=== PATIENT | male | born 1935 | race Caucasian/White ===

== ENCOUNTER 2018-05-02 09:34 | Day surgery (SDC) | payer MEDICARE ==
[~2018-05-02 09:34] MED LIST: Acetaminophen TAB* 325 MG PO PRN; Buffered Lidocaine 1% SYRIN* 1 ML/SYRINGE INTRADERM ONE
[2018-05-02] MEDS ORDERED: Midazolam* 1 MG/ML 5 ML VIAL (5 MG) ONE (11:24)
[2018-05-02] MEDS ORDERED: Tropicamide 1% OPTH.SOL* BTL ONE (12:04)
[2018-05-02] MEDS ORDERED: Ketorolac 0.5% OPHTH (NF) 0.5 % 5 ML BTL ONE (12:04)
[2018-05-02] MEDS ORDERED: Lidocaine 1%* 5 ML VIAL ONE (12:04)
[2018-05-02] MEDS ORDERED: Cyclopentolate 1% OPTH.SOL* 2 ML BTL ONE (12:04)
[2018-05-02] MEDS ORDERED: Phenylephrine 2.5% OPTH.SOL* 2 ML BTL ONE (12:04)
[2018-05-02] MEDS ORDERED: Neomycin/Polymy/Dex OPHTH.OIN* 3.5 GM ONE (12:04)
[2018-05-02] MEDS ORDERED: Tetracaine 0.5% OPTH.SOL 4 ML* 1 DROP BTL ONE (12:04)
[2018-05-02 12:47] VITALS: BP 137/67
--- NOTE | 2018-05-02 16:56 | OP ---
DATE OF OPERATION: 05/02/18 [facility] DATE OF : 35 SURGEON: Dr. Benjamin Wilson. DIRECTOR OF EXHIBIT DEVELOPMENT: None. ANESTHESIA: Topical with intravenous sedation. PRE-OP DIAGNOSIS: Cataract, left eye. POST-OP DIAGNOSIS: Cataract, left eye. OPERATIVE PROCEDURE: Phacoemulsification and cataract extraction with posterior chamber intraocular lens implant, left eye. COMPLICATIONS: None. BLOOD LOSS: None. DESCRIPTION OF PROCEDURE: The patient was brought to the operating room and received a small amount of intravenous sedation. A drop of tetracaine was placed in his left eye. He was prepped and draped in the usual sterile fashion for ophthalmic surgery and attention was directed to the left eye where a speculum was placed. A paracentesis was created at the 5 o'clock position and 0.1 cc of 1 percent preservative-free Lidocaine was injected into the anterior chamber followed by DisCoVisc. The eye was digitally stabilized while a 2.75 mm keratome was used to create a triplanar clear corneal incision at the 3 o' clock position. A continuous curvilinear capsulorrhexis was created with a cystotome and Utrata forceps. BSS on a cannula was used to hydrodissect the lens from the capsule. Phacoemulsification was performed in a divide-and- conquer technique to create four fragments which were removed. Residual cortical material was removed with irrigation and aspiration. DisCoVisc was used to inflate the capsular bag and an AU00T0 21.0 diopter lens was folded and inserted into the capsular bag. DisCoVisc was removed using irrigation and aspiration. BSS on a cannula was used to hydrate the corneal stroma and seal the wound. At the end of the case, the pupil was round and the lens was centered. The eye was of normal pressure and the wound was water tight. The speculum was removed and topical Maxitrol ointment was placed on the surface of the eye. The eye was closed, patched and shielded and the patient was sent to the recovery room in stable condition with post operative instructions and follow-up appointment given. [id number]/CPS #: [id number] MARCO A
== END 2018-05-02 12:55 | disposition home or self-care (01) ==
LOC: OREAST 09:34
PROVIDERS: ATTEND Ophthalmology
DX: H25.12 Age-related nuclear cataract, left eye (principal); I10 Essential (primary) hypertension; I49.5 Sick sinus syndrome; Z85.46 Personal history of malignant neoplasm of prostate
CPT/HCPCS: A9270-GY; J2250; V2632

== ENCOUNTER 2018-05-09 10:58 | Day surgery (SDC) | payer MEDICARE ==
[2018-05-09] MEDS ORDERED: fentaNYL* 50 MCG/ML 2 ML VIAL (100 MCG VIAL) ONE (13:16)
[2018-05-09] MEDS ORDERED: Midazolam* 1 MG/ML 2 ML VIAL (2 MG) ONE (13:16)
[2018-05-09 14:09] VITALS: BP 148/59
[2018-05-09] MEDS ORDERED: Phenylephrine OPHTH SOL 2.5%* 2 ML ONE (14:52)
[2018-05-09] MEDS ORDERED: Neomycin/Polymy/Dex OPHTH.OIN* 3.5 GM ONE (14:52)
[2018-05-09] MEDS ORDERED: Cyclopentolate 1% OPTH.SOL* 2 ML BTL ONE (14:52)
[2018-05-09] MEDS ORDERED: Lidocaine 1%* 5 ML VIAL ONE (14:52)
[2018-05-09] MEDS ORDERED: Tropicamide 1% OPTH.SOL* BTL ONE (14:52)
[2018-05-09] MEDS ORDERED: Ketorolac 0.5% OPHTH (NF) 0.5 % 5 ML BTL ONE (14:53)
[2018-05-09] MEDS ORDERED: Tetracaine 0.5% OPTH.SOL 4 ML* 1 DROP BTL ONE (14:53)
--- NOTE | 2018-05-09 14:54 | OP ---
DATE OF OPERATION/DATE OF DICTATION: 05/09/2018 - [facility] DATE OF : 1935. SURGEON: Dr. Benjamin Wilson. WELD INSPECTOR: None. ANESTHESIA: Topical with intravenous sedation. PRE-OP DIAGNOSIS: Cataract, right eye. POST-OP DIAGNOSIS: Cataract, right eye. OPERATIVE PROCEDURE: Phacoemulsification and cataract extraction with posterior chamber intraocular lens implant, right eye. COMPLICATIONS: None. BLOOD LOSS: None. OPERATIVE FINDINGS: The patient was brought to the operating room and received a small amount of intravenous sedation. A drop of Tetracaine was placed in his right eye. He was prepped and draped in the usual sterile fashion for ophthalmic surgery and attention was directed to the right eye where a speculum was placed. A paracentesis was created at the 11 o'clock position and 0.1 cc of 1 percent preservative-free Lidocaine was injected into the anterior chamber followed by DisCoVisc. The eye was digitally stabilized while a 2.75 mm keratome was used to create a triplanar clear corneal incision at the 9 o'clock position. A continuous curvilinear capsulorrhexis was created with a cystotome and Utrata forceps. BSS on a cannula was used to hydrodissect the lens from the capsule. Phacoemulsification was performed in a pahzbv-spa-mefeowu technique to create four fragments which were removed. Residual cortical material was removed with irrigation and aspiration. DisCoVisc was used to inflate the capsular bag and an AUOOTO 21.0 diopter lens was folded and inserted into the capsular bag. DisCoVisc was removed using irrigation and aspiration. BSS on a cannula was used to hydrate the corneal stroma and seal the wound. At the end of the case the pupil was round and the lens was centered. The eye was of normal pressure and the wound was water tight. The speculum was removed and topical Maxitrol ointment was placed on the surface of the eye. The eye was closed, patched and shielded and the patient was sent to the recovery room in stable condition with post operative instructions and follow-up appointment given. [id number]/CPS #: [id number] MTDD
== END 2018-05-09 14:09 | disposition home or self-care (01) ==
LOC: OREAST 10:58
PROVIDERS: ATTEND Ophthalmology
DX: H25.11 Age-related nuclear cataract, right eye (principal); I10 Essential (primary) hypertension; Z85.46 Personal history of malignant neoplasm of prostate; I49.5 Sick sinus syndrome
CPT/HCPCS: A9270-GY; J2250; J3010; V2632

== ENCOUNTER → 2018-09-19 12:36 | Day surgery (SDC) | payer MEDICARE ==
[~2018-09-19 12:36] MED LIST changes: +Bupivacaine 0.25% SDV PF* 10 ML VIAL INJ ONE; +Dexamethasone IV* 4 MG/ML 1 ML (4 MG) IV SLOW PU ONE; +Dexamethasone IV* 4 MG/ML 1 ML (4 MG) ONE; +Famotidine TAB* 20 MG ONE; +Famotidine TAB* 20 MG PO ONE; +Ibuprofen TAB* 600 MG PO PRN; +Lactated Ringers 1000 ML Bag* 1,000 ML IV SCH; +Lidocaine 1% w EPI 1:100,000* MDV 20 ML VIAL ONE; +Methylene Blue 0.5 %* 50 MG/10 ML AMP IV ONE; +Midazolam* 1 MG/ML 2 ML VIAL (2 MG) ONE; +Naloxone* 0.4 MG/ML 1 ML VIAL IV PRN; +Ondansetron INJ* 2 MG/ML VIAL IV PRN; +Propofol* 10 MG/ML 20 ML BTL ONE; +ceFAZolin 2 GM in NS PREMIX(*) 2 GM/100 ML BAG IVPB ONE; +fentaNYL* 50 MCG/ML 2 ML VIAL (100 MCG VIAL) IV PRN; +fentaNYL* 50 MCG/ML 2 ML VIAL (100 MCG VIAL) ONE; +oxyCODONE/Acetamin 5/325 MG* TAB PO PRN
[2018-09-19 18:15] VITALS: BP 127/56
== END | disposition home or self-care (01) ==
LOC: OR 12:36
PROVIDERS: ATTEND Plastic Surgery
DX: C43.61 Malignant melanoma of right upper limb, including shoulder (principal); I10 Essential (primary) hypertension; M19.90 Unspecified osteoarthritis, unspecified site; I49.5 Sick sinus syndrome
CPT/HCPCS: 88305; A9270-GY; J0690; J1100; J2250; J2704; J3010; J3490

== ENCOUNTER 2023-01-16 23:48 | Inpatient (IN) ==
[2023-01-17 00:44] LABS: ABS Lymphocytes 0.9 10^3/uL (1.0-4.8); ABS Monocytes 0.5 10^3/uL (0.0-1.1); ABS Neutrophils 4.1 10^3/uL (1.5-7.6); ABS Nucleated RBC 0.01 10^3/ul; Eosinophil % 0.5 %; Hematocrit 39.7 % (38-53); Hemoglobin 13.5 g/dL (13.2-16.3); Lymphocyte % 16.2 %; Mean Corpuscular Hemoglobin 30.8 pg (27-33); Mean Corpuscular Volume 90.6 fL (80-97); Mean Platelet Volume 8.5 fL (7.5-11.2); Nucleated Red Blood Cells % 0.2 %/100WBC (0.0-0.8); Platelet Count 136 10^3/uL (150-450); Red Blood Count 4.38 10^6/uL (4.06-5.63); Red Cell Distribution Width 14.7 % (12-17); White Blood Count 5.6 10^3/uL (3.6-10.2)
[2023-01-17 00:50] LABS: Urine Appearance Turbid; Urine Bilirubin Negative (Negative); Urine Blood Negative (Negative); Urine Color Yellow; Urine Glucose Negative (Negative); Urine Ketones Negative (Negative); Urine Nitrite Positive (Negative); Urine Protein 1+(30 mg/dL) (Negative); Urine Specific Gravity 1.018 (1.002-1.030); Urine Urobilinogen Negative (Negative)
[2023-01-17 01:00] LABS: Urine Bacteria 1+ (Absent); Urine Red Blood Cell 3+(>10/hpf) (Absent); Urine Squamous Epithelial Cell Present (Absent); Urine White Blood Cell 3+(>20/hpf) (Absent)
[2023-01-17 01:03] LABS: Albumin/Globulin Ratio 1.5 (1-3); C Reactive Protein 12.56 mg/L (<8.01); Calcium 9.5 mg/dL (8.6-10.3); Creatinine, Serum 0.87 mg/dL (0.67-1.17); Globulin 2.7 g/dL (2-4); Magnesium 1.9 mg/dL (1.9-2.7); Total Bilirubin 0.8 mg/dL (0.2-1.0); Total Protein 6.7 g/dL (6.4-8.9); eGFR CKD-EPI 83.5 (>60)
[2023-01-17 01:21] LABS: TSH Ultra Thyroid Stim Horm 4.44 mcIU/mL (0.34-5.60)
[2023-01-17] MEDS ORDERED: Polyethylene Glycol 3350 17 GM PACKET PO PRN (03:17)
[2023-01-17] MEDS ORDERED: Ondansetron 4 mg VIAL 2 MG/ML 2 ml VIAL IV PRN (03:17)
[2023-01-17] MEDS: Amoxicillin SUSP ORALSYR 80 MG/ML (400 mg/5 ml) PO SCH ×2 (10:07→21:32)
[2023-01-17] MEDS: Morphine ORAL CONCENTRATE 5 MG/0.25 ML ORAL.SYRIN SL PRN ×3 (12:59→23:01)
[2023-01-18] MEDS: Morphine ORAL CONCENTRATE 5 MG/0.25 ML ORAL.SYRIN SL PRN ×3 (04:43→13:14)
[2023-01-18] MEDS: Amoxicillin SUSP ORALSYR 80 MG/ML (400 mg/5 ml) PO SCH ×2 (11:28→22:11)
[2023-01-19] MEDS: Morphine ORAL CONCENTRATE 5 MG/0.25 ML ORAL.SYRIN SL PRN ×4 (03:38→23:38)
[2023-01-19] MEDS: Amoxicillin SUSP ORALSYR 80 MG/ML (400 mg/5 ml) PO SCH (10:25)
[2023-01-19] MEDS: Cefdinir SUSP ORALSYR 50 MG/ML (250 mg/5 ml) PO SCH (18:07)
[2023-01-20] MEDS: Cefdinir SUSP ORALSYR 50 MG/ML (250 mg/5 ml) PO SCH ×2 (09:07→22:28)
[2023-01-21] MEDS: Morphine ORAL CONCENTRATE 5 MG/0.25 ML ORAL.SYRIN SL PRN ×2 (01:00→04:23)
[2023-01-21] MEDS: Cefdinir SUSP ORALSYR 50 MG/ML (250 mg/5 ml) PO SCH ×2 (09:40→21:44)
[2023-01-22] MEDS: Cefdinir SUSP ORALSYR 50 MG/ML (250 mg/5 ml) PO SCH ×2 (10:50→20:04)
[2023-01-23 01:41] VITALS: BP 106/59
[2023-01-23] MEDS: Cefdinir SUSP ORALSYR 50 MG/ML (250 mg/5 ml) PO SCH ×2 (10:02→19:51)
[2023-01-23] MEDS: Morphine ORAL CONCENTRATE 5 MG/0.25 ML ORAL.SYRIN SL PRN (12:21)
[2023-01-23] MEDS ORDERED: Senna TAB 8.6 mg TAB PO PRN (12:51)
[2023-01-24] MEDS: Morphine ORAL CONCENTRATE 5 MG/0.25 ML ORAL.SYRIN SL PRN (01:44)
[2023-01-24] MEDS: Cefdinir SUSP ORALSYR 50 MG/ML (250 mg/5 ml) PO SCH (10:20)
== END 2023-01-24 12:43 | DRG 86 ==
LOC: ED 23:48 → EDHOLD 23:48 → SUATTDRO 01-17 03:00 → EDHOLD 01-17 14:53 → MEDTELE 01-17 15:47
PROVIDERS: ADMIT Internal Medicine; ATTEND Hospitalist